=== PATIENT | female | born 1970 | race Caucasian/White ===

== ENCOUNTER → 2024-05-02 08:49 | Outpatient (REF) | payer BC, SELFPAY | LOC: PAVMRI 08:49 | PROVIDERS: ATTENDING PHYSICIAN Orthopaedic Surgery; FAMILY PHYSICIAN Family Medicine; REFERRING PHYSICIAN Internal Medicine Rheumatology | DX: M25.561 Pain in right knee (principal) | CPT/HCPCS: 73721 ==

== ENCOUNTER 2024-07-12 06:21 | Day surgery (SDC) | payer BC, SELFPAY ==
[2024-07-06 10:36] LABS: Hematocrit 37.3 % (37.0-47.0); Hemoglobin 12.3 g/dL (12.0-16.0); Mean Corpuscular Hgb 30.1 pg (27.0-31.0); Mean Corpuscular Volume 91.4 fL (81.0-99.0); Platelet Count 227 10^3/uL (130-400); Red Blood Cell Count 4.08 10^6/uL (4.20-5.40); Red Cell Dist. Width 13.6 % (11.5-14.5); White Blood Cell Count 5.1 10^3/uL (4.8-10.8)
[2024-07-06 12:08] LABS: Blood Urea Nitrogen 13 mg/dl (7-17); Calcium 8.9 mg/dl (8.4-10.2); Carbon Dioxide 35 mmol/L (22-30); Chloride 99 mmol/L (98-107); Glucose 123 mg/dl (70-99); Potassium 3.5 mmol/L (3.5-5.1); Sodium 143 mmol/L (135-145); eGFR > 60.00
[2024-07-06 13:31] VITALS: BMI 32.0
[2024-07-12] VITALS (7 sets, daily range): BP systolic 123–150; BP diastolic 67–83; BMI 32.0
[2024-07-12] MEDS: NORMOSOL-R/PLASMALYTE-A 1000 IV (12:20)
[2024-07-12] MEDS: TYLENOL 1000 MG PO (12:32)
== END 2024-07-12 16:00 | disposition home or self-care (01) ==
LOC: SDS 06:21
PROVIDERS: ATTENDING PHYSICIAN Student in an Organized Health Care Education/Training Program; FAMILY PHYSICIAN Physician Assistant
DX: S83.242A Other tear of medial meniscus, current injury, left knee, initial encounter (principal); X58.XXXA Exposure to other specified factors, initial encounter; M94.262 Chondromalacia, left knee; M06.9 Rheumatoid arthritis, unspecified
CPT/HCPCS: 29881; 36415; 80048; 85027; 93005

== ENCOUNTER 2024-07-19 16:05 | Outpatient (RCR) | payer BC, SELFPAY | END 2024-07-19 23:59 | disposition home or self-care (01) | LOC: RPT 16:05 | PROVIDERS: ATTENDING PHYSICIAN Student in an Organized Health Care Education/Training Program; FAMILY PHYSICIAN Physician Assistant | DX: Z47.89 Encounter for other orthopedic aftercare (principal); S83.207D Unspecified tear of unspecified meniscus, current injury, left knee, subsequent encounter; Z73.6 Limitation of activities due to disability; R26.2 Difficulty in walking, not elsewhere classified; M62.81 Muscle weakness (generalized) | CPT/HCPCS: 97110; 97116; 97161 ==

== ENCOUNTER → 2024-08-15 12:15 | Outpatient (REF) | payer BC, SELFPAY | LOC: WDC 12:15 | PROVIDERS: ATTENDING PHYSICIAN Physician Assistant | DX: Z12.31 Encounter for screening mammogram for malignant neoplasm of breast (principal) | CPT/HCPCS: 77063; 77067 ==

== ENCOUNTER 2024-08-25 05:55 | Day surgery (SDC) | payer BC, SELFPAY ==
[2024-08-25] VITALS (8 sets, daily range): BP systolic 116–129; BP diastolic 66–80; BMI 32.5
[2024-08-25] MEDS: TYLENOL 1000 MG PO (06:32)
[2024-08-25] MEDS: NORMOSOL-R/PLASMALYTE-A 1000 IV (06:44)
--- NOTE | 2024-08-25 08:09 | W.IMMPOSTOP ---
Surgical Immed Post Op Note
-
Primary Surgeon: Vikas Mcmullen MD
Assisting Surgeon:
Pre-op Diagnosis: right knee medial meniscus tear
Post-op Diagnosis: right knee medial meniscus tear
Procedure Performed: arthroscopic right knee partial medial meniscectomy
Anesthesia Type: general
Specimen / Cultures: none
Estimated Blood Loss: 5mL
Complications: none apparent
Operative Findings: horizontal undersurface tear of body of medial meniscus
Tourniquet time: 31 minutes
Operative report #: [id number]
== END 2024-08-25 09:43 | disposition home or self-care (01) ==
LOC: SDS 05:55
PROVIDERS: ATTENDING PHYSICIAN Student in an Organized Health Care Education/Training Program
DX: S83.241A Other tear of medial meniscus, current injury, right knee, initial encounter (principal); X58.XXXA Exposure to other specified factors, initial encounter
CPT/HCPCS: 29881

== ENCOUNTER → 2024-08-31 15:42 | Outpatient (REF) | payer BC, SELFPAY | LOC: RAD 15:42 | PROVIDERS: ATTENDING PHYSICIAN Student in an Organized Health Care Education/Training Program | DX: M79.662 Pain in left lower leg (principal); M79.89 Other specified soft tissue disorders | CPT/HCPCS: 93971 ==

== ENCOUNTER 2024-10-11 13:24 | Emergency (ER) | payer BC, SELFPAY ==
[2024-10-11 13:27] VITALS: BP 168/91
--- NOTE | 2024-10-11 14:37 | ED.GENMED ---
History of Present Illness
General
Chief Complaint: Abdominal Pain
Source: patient
Exam Limitations: none
Time Seen by Provider: 10/11/24 14:23
History of Present Illness
History of Present Illness:
54yoF with a history of Crohn's disease, psoriatic arthritis, IBS, diverticulosis, and hyperlipidemia presenting for evaluation of abdominal pain. Symptoms began 4 days ago with bloating and gas pain. She developed lower abdominal pain the
following day which is described as a pressure. Pain has began to migrate to the L flank. She reports intermittent stabbing pains in the L flank. She has been eating a bland diet without much improvement. Stools have been small and pellet-like.
She also reports nausea and urinary frequency. She denies any fevers, chills, chest pain, shortness of breath, vomiting, hematochezia. Previous abdominal surgeries include an appendectomy, hysterectomy, and multiple laparoscopies for
endometriosis. She is currently on Humira for her Crohn's and has been in remission for the past 2 years.
Past History
Past History
ED Past Medical History: Other (Crohn's, Diverticulosis, IBS, Colon spasm,) and Other (seasonal allergies); Negative Asthma, HTN, Hypercholesterolemia or NIDDM
ED Past Surgical History: Appendectomy and Other (Nasal surgery on septum)
Social History
Tobacco: Former smoker
Alcohol: None
Drug: None
Personal:
Living: with family
Phy Exam
General Physical Exam
General Presentation: well appearing and no apparent distress
General age: appears stated age
General Skin: warm and dry
General Habitus: normal
General Mental: alert
ENT Exam
ENT Exam: normocephalic
Pulmonary Exam
Pulmonary Exam: lungs clear, no respiratory distress, no rales, no crackles, no rhonchi and no wheezing
Gastrointestinal Exam
Gastrointestinal Exam: soft, non distended and other (+tenderness throughout lower abdomen. Abdomen soft, non-distended. No rebound or guarding. +L CVA tenderness.)
Neurological Exam
Neurological Exam: alert
[place] Coma Scale
Eye Opening: Spontaneous
Verbal Response: Oriented
Motor Response: Obeys Commands
GCS Total Score: 15
Skin Exam
Skin Exam: normal color and warm/dry
Psychiatric Exam
Psychiatric Exam: normal mood/affect
Course
Orders/Labs/Results
Orders:
Orders
10/11/24 14:36
0.9% Sodium Chloride 1000 ml [Nss] 1,000 ml IV BOLUS
10/11/24 14:37
CT Abd/pelvis W Iv Cont Urgent
Comment:
Reason For Exam: LLQ pain, L flank pain
10/11/24 15:12
Complete Blood Count/With Diff Urgent
Comprehensive Metabolic Panel Urgent
Lipase Urgent
Urinalysis Reflex To Culture Urgent
Date Specimen was Collected: 10/11/24
Time Specimen was Collected: 14:44
Urine Microscopic Reflex Cult Urgent
Abnormal Lab Results
10/11/24
15:12
Glucose 104 H mg/dl
(70-99)
ALT 52 H U/L
(0-35)
Ur Occult Blood Reflex 4+ A
(Negative)
10/11/24 15:12
10/11/24 15:12
Vital Signs
Initial and Last Documented VS:
Initial Vital Signs
Temp Pulse Resp BP Pulse Ox
98.4 F 80 18 168/91 98
10/11/24 13:27 10/11/24 13:27 10/11/24 13:27 10/11/24 13:27 10/11/24 13:27
Last Documented Vital Signs
Temp Pulse Resp BP Pulse Ox
98.1 F 69 16 128/75 98
10/11/24 17:56 10/11/24 17:56 10/11/24 17:56 10/11/24 17:56 10/11/24 17:56
MDM/Problems Addressed
Differential Diagnosis Includes:
54yoF here with LLQ pain that radiates to the L flank. Associated with nausea and urinary frequency. Hx of Crohn's and diverticulosis. She is hypertensive with otherwise stable vitals. She is well appearing in no distress. No signs of peritonitis on
abdominal exam. +L CVA tenderness. Differential diagnosis includes but is not limited to: diverticulitis, Crohn's flare, kidney stone, pyelonephritis, constipation, musculoskeletal, nonspecific abdominal pain
Initial ED plan: Check abdominal labs, UA, and CT abdomen. IV fluid bolus. She declines analgesics.
*Critical Care Note
Total Time (30-74mins, 75-104mins- exclusive of procedures): Not Applicable
Update Note
Update Note:
Labs overall unremarkable including normal white count and renal function. UA without signs of infection. Imaging shows a 3mm stone in the posterior urinary bladder suggesting recently passed stone. There is also evidence of mild/early
diverticulitis without abscess or perforation. Pain improved on reassessment. No indication for hospitalization. Supportive care discussed including hydration and urine straining. She was started on a course of Augmentin. Advised f/u with PCP and
urology. ED return precautions discussed. Patient in agreement with plan and was discharged in stable condition.
ED Attending Note
-
Portions of this chart may have been created with voice recognition software.� Occasional wrong word or��sound alike� substitutions may have occurred due to the inherent limitations of voice recognition software.
Discharge Plan
Departure
Patient Disposition: Home (Routine Discharge)
Date of Disposition: 10/11/24
Time of Disposition: 17:37
Patient with high blood pressure during this ER visit?: No
Discharge Problem:
Bladder stone, Diverticulitis
Instructions: Diverticulitis (DC), How to Strain Your Urine
Prescriptions:
New
amoxicillin-pot clavulanate 875-125 mg tablet
1 tab PO BID Qty: 20 0RF
No Action
ondansetron 4 MG tablet,disintegrating
4 mg PO PRN PRN (Reason: Nausea)
prednisone 5 mg Tablet
5 mg PO PRN PRN (Reason: Psoriatic Arthritis)
methotrexate sodium 2.5 mg Tablet
15 mg PO SA
folic acid 1 mg Tablet
1 mg PO SUMOTUWETHFR
loratadine [Claritin] 10 mg Tablet
10 mg PO DAILY
escitalopram oxalate [Lexapro] 10 mg Tablet
10 mg PO DAILY
Humira 40 mg/0.8 mL Syringe Kit
40 mg SC Q2W
rosuvastatin 10 mg Tablet
10 mg PO MOWESA
cholecalciferol (vitamin D3) [Vitamin D3] 50 mcg (2,000 unit) Capsule
50 mcg PO DAILY
meloxicam submicronized 5 mg Capsule
5 mg PO PRN PRN (Reason: pain)
acetaminophen [Tylenol Arthritis] 650 mg Tablet Extended Release
650 mg PO Q8H PRN (Reason: pain)
ibuprofen [Advil] 200 mg Tablet
200 - 400 mg PO PRN PRN (Reason: pain)
Referrals:
Yaritza Torres PA [Family Provider] -
Jagjit Chan Jr., MD [Active] -
Activity Restrictions/Additional Instructions:
Take antibiotics as prescribed. Take Tylenol and ibuprofen as needed for pain. Drink plenty of fluids and strain your urine until stone has passed.
Please follow-up with your family doctor and urology. Return to the ER with any new or worsening symptoms including severe pain or fevers.
Interventions
Interventions:
*Risk Screen - Suicide Last Done: 10/11/24 13:27
*General Assessment Last Done: 10/11/24 13:27
*Neglect/Abuse Screening Last Done: 10/11/24 13:27
*ED- Fall Risk Assessment Last Done: 10/11/24 14:56
*ED COVID-19 Vaccine History Last Done: 10/11/24 14:56
*Nursing Disposition Last Done: 10/11/24 17:56
PH-Mizrhg-Hfyjckuraw Assessment Last Done: 10/11/24 14:56
Discharge Date and Time
Discharge Date/Time: 10/11/24 17:57
Print Language: TANZANIAN
[2024-10-11 14:56] VITALS: BMI 33.1
[2024-10-11] MEDS: NSS 1000 IV (15:09)
[2024-10-11 15:34] LABS: Urine Albumin Negative (Neg - Trace); Urine Bilirubin Negative (Negative); Urine Character Clear (Clear); Urine Color Yellow; Urine Glucose Negative (Negative); Urine Ketone Negative (Negative); Urine Leukocyte Negative (Negative); Urine Nitrite Negative (Negative); Urine Occult Blood 4+ (Negative); Urine Specific Gravity 1.005 (<1.030); Urine Urobilinogen Negative (Neg - 1+)
[2024-10-11 15:47] LABS: ALT (SGPT) 52 U/L (0-35); AST (SGOT) 36 U/L (14-36); Albumin 4.7 g/dl (3.5-5.0); Alkaline Phosphatase 90 U/L (38-126); Blood Urea Nitrogen 14 mg/dl (7-17); Calcium 9.4 mg/dl (8.4-10.2); Carbon Dioxide 27 mmol/L (22-30); Chloride 103 mmol/L (98-107); Estimated Creatinine Clearance 97 ml/min; Glucose 104 mg/dl (70-99); Potassium 3.9 mmol/L (3.5-5.1); Sodium 142 mmol/L (135-145); Total Bilirubin 0.5 mg/dl (0.2-1.3); Total Protein 7.5 g/dl (6.3-8.2); eGFR > 60.00
[2024-10-11 15:51] LABS: % Basophils 0.3 % (0-2); % Eosinophils 4.5 % (0-6); % Immature Granulocytes 0.2 % (0-0.5); Absolute Eosinophils 0.3 10^3/uL (0-0.7); Absolute Lymphocytes 1.6 10^3/uL (1.2-3.4); Absolute Monocytes 0.4 10^3/uL (0.1-0.6); Absolute Neutrophils 3.7 10^3/uL (1.4-6.5); Hematocrit 37.7 % (37.0-47.0); Hemoglobin 12.6 g/dL (12.0-16.0); Mean Corp Hgb Conc. 33.4 g/dL (33.0-37.0); Mean Corpuscular Hgb 29.6 pg (27.0-31.0); Mean Corpuscular Volume 88.5 fL (81.0-99.0); Mean Platelet Volume 9.8 fL (7.4-10.4); Nucleated Red Blood Cells % 0 %; Platelet Count 237 10^3/uL (130-400); Red Blood Cell Count 4.26 10^6/uL (4.20-5.40); Red Cell Dist. Width 13.9 % (11.5-14.5)
[2024-10-11 15:55] LABS: Lipase 102 U/L (23-300)
[2024-10-11 16:09] LABS: Urine Red Blood Cell 0-2 /HPF (0-2); Urine White Cell 0-2 /HPF (0-5)
[2024-10-11 16:50] VITALS: BP 136/79
[2024-10-11 17:56] VITALS: BP 128/75
--- NOTE | 2024-10-11 17:56 | EDRN ---
Reviewed discharge instructions with patient. Verbalized understanding. Ambulated with steady gait to the lobby.
== END 2024-10-11 17:57 | disposition home or self-care (01) ==
LOC: EMR 13:24
PROVIDERS: Physician Assistant; EMERGENCY PHYSICIAN Emergency Medicine; FAMILY PHYSICIAN Physician Assistant
DX: K57.32 Diverticulitis of large intestine without perforation or abscess without bleeding (principal); N21.0 Calculus in bladder; Z90.49 Acquired absence of other specified parts of digestive tract; Z87.891 Personal history of nicotine dependence
CPT/HCPCS: 96360; 99284; 74177; 80053; 81003; 81015; 83690; 85025; Q9967

== ENCOUNTER → 2024-11-10 10:41 | Outpatient (REF) | payer BC, SELFPAY | LOC: RAD 10:41 | PROVIDERS: ATTENDING PHYSICIAN Internal Medicine Rheumatology; FAMILY PHYSICIAN Physician Assistant | DX: L40.50 Arthropathic psoriasis, unspecified (principal) | CPT/HCPCS: 72070 ==

== ENCOUNTER → 2025-01-26 13:59 | Outpatient (REF) | payer BC, SELFPAY | LOC: EMG 13:59 | PROVIDERS: ATTENDING PHYSICIAN Internal Medicine Rheumatology; FAMILY PHYSICIAN Physician Assistant | DX: R20.0 Anesthesia of skin (principal) | CPT/HCPCS: 95886; 95909 ==

== ENCOUNTER → 2025-01-26 15:03 | Outpatient (REF) | payer BC, SELFPAY | LOC: RAD 15:03 | PROVIDERS: ATTENDING PHYSICIAN Internal Medicine Rheumatology; FAMILY PHYSICIAN Physician Assistant | DX: M25.50 Pain in unspecified joint (principal); M79.662 Pain in left lower leg | CPT/HCPCS: 72100; 73590 ==

== ENCOUNTER → 2025-02-12 09:38 | Outpatient (REF) | payer BC, SELFPAY | LOC: HWRAD 09:38 | PROVIDERS: ATTENDING PHYSICIAN Physician Assistant | DX: N20.0 Calculus of kidney (principal); R10.9 Unspecified abdominal pain | CPT/HCPCS: 76770 ==

== ENCOUNTER → 2025-05-19 08:03 | Outpatient (REF) | payer BC, SELFPAY | LOC: RAD 08:03 | PROVIDERS: ATTENDING PHYSICIAN Nurse Practitioner Family; FAMILY PHYSICIAN Physician Assistant | DX: Z87.442 Personal history of urinary calculi (principal) | CPT/HCPCS: 74176 ==

== ENCOUNTER 2025-05-19 09:46 | Emergency (ER) | payer BC, SELFPAY ==
[2025-05-19 09:54] VITALS: BP 140/96
--- NOTE | 2025-05-19 10:19 | EDRN ---
Dr. Marcos in room w/ pt.
[2025-05-19 10:57] VITALS: BP 129/74
[2025-05-19 11:00] VITALS: BP 140/75
[2025-05-19 11:11] LABS: Hematocrit 39.5 % (37.0-47.0); Hemoglobin 13.0 g/dL (12.0-16.0); Mean Corp Hgb Conc. 32.9 g/dL (33.0-37.0); Mean Corpuscular Volume 93.8 fL (81.0-99.0); Nucleated Red Blood Cells % 0 %; Platelet Count 193 10^3/uL (130-400); Red Cell Dist. Width 13.4 % (11.5-14.5)
[2025-05-19 11:12] LABS: Urine Character Clear (Clear)
[2025-05-19 11:29] LABS: Urine Red Blood Cell 0-2 /HPF (0-2)
[2025-05-19 11:44] LABS: ALT (SGPT) 36 U/L (0-35); AST (SGOT) 26 U/L (14-36); Albumin 4.3 g/dl (3.5-5.0); Alkaline Phosphatase 73 U/L (38-126); Blood Urea Nitrogen 14 mg/dl (7-17); Calcium 9.5 mg/dl (8.4-10.2); Carbon Dioxide 31 mmol/L (22-30); Chloride 103 mmol/L (98-107); Glucose 121 mg/dl (70-99); Potassium 3.7 mmol/L (3.5-5.1); Sodium 137 mmol/L (135-145); Total Protein 7.3 g/dl (6.3-8.2); eGFR > 60.00
[2025-05-19 12:00] VITALS: BP 127/73
--- NOTE | 2025-05-19 12:22 | ED.GENMED ---
History of Present Illness
General
Chief Complaint: Flank Pain
Source: patient and family
Time Seen by Provider: 05/19/25 10:09
History of Present Illness
History of Present Illness:
Note:
CHIEF COMPLAINT(S)
The patient presents with acute left flank pain, presumed to be secondary to a kidney stone.
HISTORY OF PRESENT ILLNESS
The patient is a 54-year-old female with a history of Crohns disease who presents with left flank pain. The pain began acutely at approximately 2:45 AM the previous morning. The patient reports having been diagnosed with a urinary tract infection by
a family practice doctor who initiated treatment with nitrofurantoin. An imaging study revealed a 6.4 mm obstructing kidney stone in the ureter with secondary hydronephrosis. The patient describes the pain as severe, which led her to seek evaluation
at the emergency department. She denies any fever or signs of infection, although a previous test indicated the presence of white blood cells in her urine. The patient is concerned about the possibility of this representing an infection. The patient
has been informed about conservative management options, such as lithotripsy, unless signs of infection or uncontrolled pain persist.
PAST MEDICAL HISTORY
The patient has a history of Crohns disease and borderline diabetes. She reports that she is not currently taking any steroids regularly but does so sporadically during flares.
CHRONIC MEDICAL CONDITIONS SIGNIFICANTLY AFFECTING CARE
Chronic conditions affecting care include Crohns disease and borderline diabetes.
MEDICATIONS
The patient is currently taking methotrexate every Wednesday and adalimumab (Humira) every other week for Crohns disease. She was recently prescribed nitrofurantoin for a urinary tract infection.
REVIEW OF SYSTEMS
- Genitourinary: Left flank pain; recent diagnosis of urinary tract infection and obstructing kidney stone.
- Gastrointestinal: History of Crohns disease.
PHYSICAL EXAM
General: Alert, no acute distress.
Skin: Warm, dry.
Head: Normocephalic, atraumatic.
Neck: Supple, trachea midline.
Eye, Ears, Nose, Mouth, and Throat: Oral mucosa moist.
Cardiovascular: Normal peripheral perfusion, no edema.
Respiratory: Respirations are non-labored.
Gastrointestinal: Abdomen nondistended.
Back: Normal range of motion, normal alignment.
Musculoskeletal: Normal range of motion, normal strength.
Neurological: Alert and oriented to person, place, time, and situation, no focal neurological deficit observed.
Psychiatric: Cooperative, appropriate mood & affect.
PROBLEM LIST
Acute Problems:
- Obstructing ureteral stone with hydronephrosis
- Possible urinary tract infection
Chronic Problems:
- Crohns disease
- Borderline diabetes
PLAN
1. Obtain laboratory workup to re-evaluate urine for signs of infection.
2. Provide relief for flank pain as necessary.
3. Consider lithotripsy if the stone does not pass spontaneously and there are no signs of infection or uncontrolled pain.
4. Advise the patient to monitor for symptoms of infection such as fever and increased or persistent pain.
5. Follow up with urology if condition worsens or if further intervention for stone is required.
DIFFERENTIAL DIAGNOSIS
The Differential Diagnosis includes, in no particular order and is not limited to:
1. Ureteral stone
2. Urinary tract infection
3. Pyelonephritis
4. Renal colic
5. Diverticulitis
6. Appendicitis
7. Gallstones/cholecystitis
8. Ovarian cyst/torsion
9. Bowel obstruction
10. Inflammatory bowel disease flare
CARE-UPDATE
05/19/25 - 10:[address] abdomen and pelvis from 05/19 reveals a 6.4 mm obstructing stone in the proximal left ureter with associated hydronephrosis.
Disposition:
SUMMARY OF ENCOUNTER
The patient, a 54-year-old female with a history of kidney stones, presented with left flank pain ongoing for the week. An outpatient CT scan revealed a more than 6 mm stone in the left proximal ureter. Despite the obstructing stone, the patients
condition remained stable, and her pain was well-controlled. Her laboratory tests showed a normal complete blood count (CBC) with no left shift, a normal comprehensive metabolic panel (CMP), and a urinalysis indicated no significant number of white
blood cells in the urine. The patient had been prescribed nitrofurantoin by her primary care provider, which she was advised to continue and complete.
DISPOSITION
The patient was discharged with outpatient management coordinated with urology for follow-up treatment. She was advised to call for an urgent appointment on Wednesday.
ASSESSMENT
The patient has a 6 mm stone in the left proximal ureter with stable symptoms, requiring conservative outpatient management given the absence of significant infection indicators.
MANAGEMENT OF THE PATIENTS CARE WAS DISCUSSED WITH
I discussed the case with Dr. Cervantes from urology, who agreed on outpatient management with arrangements for an urgent follow-up appointment.
PLAN
The plan includes prescribing pain management, advising the patient to continue tamsulosin she has at home, and prescribing anti-emetics as needed. The patient was instructed to return immediately for any infectious symptoms, such as fever or
changes in mental status.
INDEPENDENT REVIEW OF LABS AND INTERPRETATION OF TESTS
- My independent review of CBC is normal with no left shift.
- My independent review of CMP is normal.
- My independent review of urinalysis shows no significant number of white blood cells in the urine.
PATIENT EDUCATION AND COUNSELING
The patient was counseled on the importance of returning immediately for any infectious symptoms, including fever, changes in mental status, or worsening symptoms. She was informed of the follow-up arrangements with urology.
FOLLOW-UP INSTRUCTIONS
The patient was instructed to call for an urgent appointment with urology on Wednesday.
MEDICATION RECONCILIATION
The patient is to continue nitrofurantoin as prescribed by her primary care provider and tamsulosin. Pain control and anti-emetics will also be prescribed.
MEDICAL DECISION MAKING
- Number and Complexity of Problems Addressed: Chronic conditions affecting care include a history of kidney stones. Differential diagnosis includes ureteral stone, urinary tract infection, pyelonephritis, renal colic, diverticulitis, appendicitis,
gallstones/cholecystitis, ovarian cyst/torsion, bowel obstruction, and inflammatory bowel disease flare.
- Data:
- Category 1: My independent review of the patients outpatient CT scan and laboratory results (CBC and CMP).
- Category 2: Discussion of case management with Dr. Coley from urology.
- Risk: Prescription management includes continuing nitrofurantoin, prescribing anti-emetics, and facilitating follow-up with urology.
DIAGNOSIS
- Obstructive and reflux uropathy, unspecified (N13.9)
- Calculus of the ureter (N20.1)
Past History
Past History
ED Past Medical History: Other (Crohn's, Diverticulosis, IBS, Colon spasm,) and Other (seasonal allergies); Negative Asthma, HTN, Hypercholesterolemia or NIDDM
ED Past Surgical History: Appendectomy and Other (Nasal surgery on septum)
Social History
Tobacco: Former smoker
Alcohol: None
Drug: None
Personal:
Living: with family
Phy Exam
Physical Exam
Physical Exam:
.
Course
Orders/Labs/Results
Orders:
Orders
05/19/25 10:53
Complete Blood Count/With Diff Urgent
Comprehensive Metabolic Panel Urgent
05/19/25 10:55
Urinalysis Reflex To Culture Urgent
Date Specimen was Collected: 05/19/25
Time Specimen was Collected: 10:53
Urine Microscopic Reflex Cult Urgent
Urine Culture Urgent
DWAIN Source: U
Specimen Description:
Date Specimen was Collected: 05/19/25
Time Specimen was Collected: 10:53
Abnormal Lab Results
05/19/25 05/19/25
10:53 10:55
MCHC 32.9 L g/dL
(33.0-37.0)
Absolute Lymphs (auto) 0.8 L 10^3/uL
(1.2-3.4)
Absolute Monos (auto) 0.7 H 10^3/uL
(0.1-0.6)
Absolute Eos (auto) 0.9 H 10^3/uL
(0-0.7)
Lymphocytes % 12.2 L %
(20.5-51.1)
Monocytes % 10.0 H %
(1.7-9.3)
Eosinophils % 13.6 H %
(0-6)
Carbon Dioxide 31 H mmol/L
(22-30)
Glucose 121 H mg/dl
(70-99)
ALT 36 H U/L
(0-35)
Leukocyte Esterase Rfl 1+ A
(Negative)
Urine Bacteria (Reflex) Few A
(Negative)
05/19/25 10:53
05/19/25 10:53
Vital Signs
Initial and Last Documented VS:
Initial Vital Signs
Temp Pulse Resp BP Pulse Ox
98.1 F 84 16 140/96 98
05/19/25 09:54 05/19/25 09:54 05/19/25 09:54 05/19/25 09:54 05/19/25 09:54
Last Documented Vital Signs
Temp Pulse Resp BP Pulse Ox
98.1 F 65 16 127/73 97
05/19/25 09:54 05/19/25 12:00 05/19/25 12:00 05/19/25 12:00 05/19/25 12:22
*Pulse Oximetry
SaO2: 97
Oxygen Mode of Delivery: Room air
Patient hypoxic: no
*Critical Care Note
Total Time (30-74mins, 75-104mins- exclusive of procedures): Not Applicable
ED Attending Note
-
Portions of this chart may have been created with voice recognition software.� Occasional wrong word or��sound alike� substitutions may have occurred due to the inherent limitations of voice recognition software.
Discharge Plan
Departure
Patient Disposition: Home (Routine Discharge)
Date of Disposition: 05/19/25
Time of Disposition: 12:48
Patient with high blood pressure during this ER visit?: No
Discharge Problem:
Ureterolithiasis
Instructions: Kidney Stones (DC), Narcotic Pain Medication
Prescriptions:
New
hydrocodone-acetaminophen 5-325 mg tablet
2 tab PO Q6H PRN (Reason: Pain) Qty: 14 0RF
ondansetron 4 mg tablet,disintegrating
4 mg PO Q8H PRN (Reason: nausea and vomiting) Qty: 20 0RF
No Action
ondansetron 4 MG tablet,disintegrating
4 mg PO PRN PRN (Reason: Nausea)
prednisone 5 mg Tablet
5 mg PO PRN PRN (Reason: Psoriatic Arthritis)
methotrexate sodium 2.5 mg Tablet
15 mg PO SA
folic acid 1 mg Tablet
1 mg PO SUMOTUWETHFR
Patient Comments:
Does not take on Wednesday due to Methotrexate
loratadine [Claritin] 10 mg Tablet
10 mg PO DAILY
escitalopram oxalate [Lexapro] 10 mg Tablet
10 mg PO DAILY
Humira 40 mg/0.8 mL Syringe Kit
40 mg SC Q2W
rosuvastatin 10 mg Tablet
5 mg PO MOWESA
Patient Comments:
Pt has only been taking 5 mg due to muscle pain and not every day.
cholecalciferol (vitamin D3) [Vitamin D3] 50 mcg (2,000 unit) Capsule
50 mcg PO DAILY
meloxicam submicronized 5 mg Capsule
5 mg PO PRN PRN (Reason: pain)
acetaminophen [Tylenol Arthritis] 650 mg Tablet Extended Release
650 mg PO Q8H PRN (Reason: pain)
ibuprofen [Advil] 200 mg Tablet
200 - 400 mg PO PRN PRN (Reason: pain)
nitrofurantoin monohyd/m-cryst [Macrobid] 100 mg Capsule
100 mg PO Q12H
Referrals:
Yaritza Torres PA [Family Provider, Family Practice]
Activity Restrictions/Additional Instructions:
Please see Dr. Chan on Wednesday or Wednesday for follow-up and reevaluation. Return immediately for fevers, changes in mentation, worsening pain, intractable vomiting or any other concerns.
Interventions
Interventions:
*Risk Screen - Suicide Last Done: 05/19/25 11:00
*General Assessment Last Done: 05/19/25 10:45
*Neglect/Abuse Screening Last Done: 05/19/25 09:54
*ED- Fall Risk Assessment Last Done: 05/19/25 10:45
*ED COVID-19 Vaccine History Last Done: 05/19/25 10:45
*ED Influenza Vaccine History Last Done: 05/19/25 10:45
GW-Lzbyej-Jzlfxynovu Assessment Last Done: 05/19/25 10:57
ED-Female Genitourinary Assessment Last Done: 05/19/25 10:57
Discharge Date and Time
Print Language: GUATEMALAN
--- NOTE | 2025-05-19 12:43 | EDRN ---
Dr. Marcos in room w/pt at this time.
== END 2025-05-19 12:58 | disposition home or self-care (01) ==
LOC: EMR 09:46
PROVIDERS: EMERGENCY PHYSICIAN Emergency Medicine; FAMILY PHYSICIAN Physician Assistant
DX: N20.1 Calculus of ureter (principal); K58.9 Irritable bowel syndrome, unspecified; Z87.891 Personal history of nicotine dependence; Z90.49 Acquired absence of other specified parts of digestive tract
CPT/HCPCS: 99284; 74176; 80053; 81003; 81015; 85025; 87086

== ENCOUNTER 2025-05-25 06:22 | Day surgery (SDC) | payer BC, SELFPAY ==
[2025-05-25] VITALS (9 sets, daily range): BP systolic 120–133; BP diastolic 67–82; BMI 30.9
[2025-05-25] MEDS: NORMOSOL-R/PLASMALYTE-A 1000 IV (07:09)
[2025-05-25] MEDS: DETROL LA 4 MG PO (10:03)
[2025-05-25] MEDS: MOTRIN 600 MG PO (10:43)
== END 2025-05-25 11:10 | disposition home or self-care (01) ==
LOC: SDS 06:22
PROVIDERS: ATTENDING PHYSICIAN Specialist
DX: N20.2 Calculus of kidney with calculus of ureter (principal)
CPT/HCPCS: 52356; 74420; 76000; 93005; C1894